=== PATIENT | female | born 1955 | race Caucasian/White ===

== ENCOUNTER 2017-05-16 15:26 | Observation (INO) | payer OTHER ==
[~2017-05-16] VITALS: Ht 175.3 cm; Wt 101.8 kg
[2017-05-16 16:42] LABS: BASOPHILS 0.9 % (0-2); EOSINOPHILS 3.7 % (0-7); HEMATOCRIT 41.7 % (36.0-48.0); HEMOGLOBIN 13.7 g/dL (12-16); IMMATURE GRANULOCYTES 0.3 % (0-5); LYMPHOCYTES 38.9 % (15-50); MCH 30.3 pg (26.0-34.0); MCHC 32.9 g/dL (31.0-37.0); MCV 92.3 fL (80.0-100.0); MEAN PLATELET VOLUME 10.7 fL (7.4-10.4); MONOCYTES 6.3 % (2-11); NEUTROPHILS 49.9 % (40-80); PLATELET COUNT 234 10x3/uL (130-400); RBC 4.52 10x6/uL (4.00-5.40); RDW 13.6 % (11.5-14.5)
[2017-05-16 16:57] LABS: APTT 25.1 SECONDS (22.8-39.4); INR 0.97 (0.85-1.17); PROTIME 12.7 SECONDS (11.6-15.0)
[2017-05-16 17:03] LABS: ALBUMIN 3.8 g/dL (3.4-5.0); ALKALINE PHOSPHATASE 117 U/L (46-116); ALT (SGPT) 52 U/L (10-68); BILIRUBIN - TOTAL 0.51 mg/dL (0.2-1.3); CALC OSMOLALITY 282 mosm/kg (275-300); CALCIUM 8.8 mg/dL (8.5-10.1); CARBON DIOXIDE 25.7 mmol/L (21.0-32.0); CHLORIDE - SERUM 107 mmol/L (98-107); CREATININE - SERUM 0.7 mg/dL (0.6-1.3); GLUCOSE 103 mg/dL (74-106); POTASSIUM - SERUM 4.2 mmol/L (3.5-5.1); PROTEIN - SERUM 7.1 g/dL (6.4-8.2); SODIUM 142 mmol/L (136-145); UREA NITROGEN 13 mg/dL (7-18); eGFR NON AFRICAN AMERICAN 90 mL/min (90-120)
[2017-05-16 17:14] LABS: CREATINE KINASE 64 UL (21-215); PRO BNP 108 pg/mL (0-125)
[2017-05-16 17:17] LABS: APPEARANCE CLEAR (CLEAR); BILIRUBIN NEGATIVE (NEGATIVE); COLOR DK YELLOW (YELLOW); GLUCOSE NEGATIVE (NEGATIVE); KETONE NEGATIVE (NEGATIVE); LEUKOCYTE ESTERASE NEGATIVE (NEGATIVE); NITRITE NEGATIVE (NEGATIVE); PROTEIN NEGATIVE (NEGATIVE); SPECIFIC GRAVITY 1.025 (1.005-1.020); UROBILINOGEN NORMAL (NORMAL)
[2017-05-16 17:17] LABS: TROPONIN-I < 0.017 ng/mL (0.000-0.060)
[2017-05-16 17:27] LABS: UDS - AMPHET NEGATIVE QUAL (NEGATIVE); UDS - BARB NEGATIVE QUAL (NEGATIVE); UDS - BENZO NEGATIVE QUAL (NEGATIVE); UDS - COCAINE NEGATIVE QUAL (NEGATIVE); UDS - METH NEGATIVE QUAL (NEGATIVE); UDS - OPIATE NEGATIVE QUAL (NEGATIVE); UDS - PCP NEGATIVE QUAL (NEGATIVE); UDS - THC NEGATIVE QUAL (NEGATIVE)
--- NOTE | 2017-05-16 21:17 | NUR ---
PT ARRIVED ON FLOOR AT THIS TIME ACCOMPANIED BY HOSPITAL STAFF
[2017-05-17 04:00] VITALS: BP 129/70
--- NOTE | 2017-05-17 05:00 | NUR ---
PT RESTOMG OM BED WITH NO DISTRESS. MONITOR AND CPOC.
--- NOTE | 2017-05-17 07:41 | NUR ---
AM ROUNDS- PT UP TO SIDE OF BED, ASKING FOR BREAKFAST, INFORMED PT SHE SHOULD GET BREAKFAST AROUND 8. PT DENIES ANY OTHER NEEDS AT THIS TIME. BED LOW AND WHEELS LOCKED, BEDSIDE RAILS X1. CALL LIGHT IN REACH, NAD NOTED, WILL CONTINUE TO MONITOR.
[2017-05-17 08:00] VITALS: BP 137/80
[2017-05-17 08:16] VITALS: BP 129/70; Ht 175.3 cm; Wt 101.8 kg
[2017-05-17 12:00] VITALS: BP 151/91
[2017-05-17] MEDS ORDERED: LEVOTHYROXINE100 MCG PO (12:48)
[2017-05-17] MEDS ORDERED: FISH OIL 1,0001 CA1 PO (12:49)
[2017-05-17] MEDS ORDERED: COLACE100 MG PO (12:49)
[2017-05-17] MEDS ORDERED: VITAMIN C1000 MG PO (12:49)
[2017-05-17] MEDS ORDERED: BAYER CHEWABLE81 MG PO (12:50)
[2017-05-17] MEDS ORDERED: GLUCOPHAGE500 MG PO (12:50)
[2017-05-17 16:00] VITALS: BP 164/95
--- NOTE | 2017-05-17 19:36 | NUR ---
PT LEFT FLOOR AT THIS TIME ACCOMPANIED BY MYSELF. IV REMOVED WITH CATHETER INTACT
--- NOTE | 2017-05-18 09:20 | NUR ---
Patient Name: JIM CERVANTES Admission Status: ER Accout number: [id number] Admission Date: 05-16-2017 : 1955 Admission Diagnosis: Attending: DAFNE Current LOS: 1 Anticipated DC Date: 05-17-2017 Planned Disposition: Home Primary Insurance: [facility] PP LATE ENTRY FROM 05-17-17: Discharge Planning Comments: * Is the patient Alert and Oriented? Yes 0 * How many steps to enter\exit or inside your home? RAMP 0 * PCP DR. WATSON 0 * [facility] * Preadmission Environment Home with Family 0 * ADLs Independent 0 * Equipment None 0 * Other Equipment NO MEDICAL EQUIPMENT PROVIDER PREFERENCE 0 * List name and contact numbers for known caregivers / representatives who currently or will assist patient after discharge: KENISHA BENJAMIN, SISTER, 0 * Community resources currently utilized None 0 * Please name any agencies selected above. NONE 0 * Additional services required to return to the preadmission environment? No 0 * Can the patient safely return to the preadmission environment? Yes 0 * Has this patient been hospitalized within the prior 30 days at any hospital? No 0 CM MET WITH PT IN ROOM TO DISCUSS DISCHARGE PLANNING AND NEEDS. PT REPORTS LIVING AT HOME INDEPENDENTLY WITH HER ADULT SISTER AND SISTERS FAMILY. PT HAS NO MEDICAL EQUIPMENT AND NO OUTSIDE SERVICES ASSISTING IN THE HOME. CM DISCUSSED AVAILABILITY OF HOME HEALTH, REHAB SERVICES AND MEDICAL EQUIPMENT. PT DENIES DISCHARGE NEEDS, REPORTS SHE IS DRIVING HERSELF HOME AT DISCHARGE. District Traffic Chief: Yao Simpson
== END 2017-05-17 19:36 | disposition home or self-care (01) ==
LOC: D.ER 15:26 → D.M2 19:32 → D.ER 19:32 → D.M2 19:32 → OBSVTIME 19:32 → D.M2 19:56
PROVIDERS: Emergency Medicine; ADMIT Emergency Medicine
DX: J44.9 Chronic obstructive pulmonary disease, unspecified (principal); F17.203 Nicotine dependence unspecified, with withdrawal; K44.9 Diaphragmatic hernia without obstruction or gangrene; E11.9 Type 2 diabetes mellitus without complications; I10 Essential (primary) hypertension; E03.9 Hypothyroidism, unspecified; K59.09 Other constipation

== ENCOUNTER 2017-05-28 12:28 | Emergency (ER) | payer OTHER ==
[2017-05-17 08:16] VITALS: BMI 33.1
[~2017-05-28 12:28] MED LIST: BAYER CHEWABLE81 MG PO; COLACE100 MG PO; FISH OIL 1,0001 CA1 PO; GLUCOPHAGE500 MG PO; LEVOTHYROXINE100 MCG PO; VITAMIN C1000 MG PO
== END 2017-05-28 13:19 | disposition home or self-care (01) ==
LOC: D.ER 12:28
DX: S00.93XA Contusion of unspecified part of head, initial encounter (principal); V43.52XA Car driver injured in collision with other type car in traffic accident, initial encounter; Y93.89 Activity, other specified; Y92.410 Unspecified street and highway as the place of occurrence of the external cause; F17.200 Nicotine dependence, unspecified, uncomplicated

== ENCOUNTER 2017-10-07 05:08 | Emergency (ER) | payer OTHER ==
[2017-05-17 08:16] VITALS: BMI 33.1
== END 2017-10-07 06:07 | disposition home or self-care (01) ==
LOC: D.ER 05:08
DX: S63.502A Unspecified sprain of left wrist, initial encounter (principal); W07.XXXA Fall from chair, initial encounter; Y93.89 Activity, other specified; Y92.89 Other specified places as the place of occurrence of the external cause